=== PATIENT | male | born 1990 ===

== ENCOUNTER 2019-04-08 08:10 | Emergency (ER) | payer SELFPAY ==
[~2019-04-08] VITALS: Ht 177.8 cm; Wt 143.0 kg
[2019-04-08] MEDS ORDERED: AMLODIPINE 10MG TABLET PO ONE (09:15)
[2019-04-08 09:18] LABS: BASOPHILS % 0.6 % (0.0-2.0); EOSINOPHILS % 0.7 % (0.0-5.0); HEMATOCRIT. 43.7 % (42.0-52.0); HEMOGLOBIN. 15.2 g/dL (14.0-18.0); LYMPHOCYTES % 33.4 % (20.0-50.0); MEAN CORPUSCULAR HEMOGLOBIN 29.5 pg (28.0-32.0); MEAN CORPUSCULAR VOLUME 85.1 fL (80.0-94.0); MEAN PLATELET VOLUME 8.6 fl (7.4-10.4); MONOCYTES % 11.3 % (2.0-8.0); PLATELET 202 x1000/uL (130-400); RED BLOOD CELL COUNT 5.14 mill/uL (4.7-6.1); RED CELL DISTRIBUTION WIDTH 13.8 % (11.6-14.6)
[2019-04-08 09:25] LABS: CHLORIDE 107 mEq/L (98-107)
[2019-04-08 13:01] VITALS: BP 128/88
== END 2019-04-08 13:02 | disposition home or self-care (01) ==
LOC: ER 08:10
DX: R42 Dizziness and giddiness (principal); I10 Essential (primary) hypertension; Z91.14 Patient's other noncompliance with medication regimen
CPT/HCPCS: 36415; 71046; 82962; 84484; 93005; 99284